=== PATIENT | male | born 1950 | race Caucasian/White ===

== ENCOUNTER 2017-05-20 12:23 | Emergency (ER) | payer OTHER ==
[2017-05-20 12:37] VITALS: BP 154/95; TEMP 97.9; BMI 25.1
--- NOTE | 2017-05-20 13:45 | PDOC ---
Attending Attestation - Resident Resident Name: Vinicius Fairbanksl - ED Attending Attestation I have performed the following: I have examined & evaluated the patient, The case was reviewed & discussed with the resident, I agree w/resident's findings & plan, Exceptions are as noted - HPI HPI: 67 yo M history CAD s/p stent, HL, presents with abrupt onset lower abdominal bloating, nausea since this morning. He states that he was out fishing all day yesterday with a friend, slept more heavily than he normally does as he was very tired. He states that this morning he started to have bloating in his lower abdomen, then noted pain to the L flank/L side/L hip. Pain does not change with position. Able to ambulate without difficulty. Symptoms are associated with nausea. No vomiting, no dysuria. - Physicial Exam PE: GENERAL: Awake, alert, and fully oriented, in no acute distress. Appears uncomfortable. HEAD: No signs of trauma EYES: PERRLA, EOMI, sclera anicteric, conjunctiva clear ENT: Auricles normal inspection, hearing grossly normal, nares patent, oropharynx clear without exudates. Moist mucosa NECK: Normal ROM, supple, no lymphadenopathy, JVD, or masses LUNGS: Breath sounds equal, clear to auscultation bilaterally. No wheezes, and no crackles HEART: Bradycardic with regular rhythm, normal S1 and S2, no murmurs, rubs or gallops ABDOMEN: Soft, nontender, normoactive bowel sounds. No guarding, no rebound. No masses. No CVAT. EXTREMITIES: Normal range of motion, no edema. No clubbing or cyanosis. No cords, erythema, or tenderness NEUROLOGICAL: Cranial nerves II through XII grossly intact. Normal speech, normal gait SKIN: Warm, Dry, normal turgor, no rashes or lesions noted. - Medical Decision Making Pt with history of CAD, prior stent, recently stopped his plavix (it has been 1 year since stent placement). Presents with lower abdominal discomfort/bloating, radiating to L side. Noted to have intermittent belching in ED. Will obtain CE, lipase, and basic labs. Will obtain CT r/o kidney stone.
[2017-05-20] MEDS ORDERED: ONDANSETRON 4 MG/2 ML VIAL IVPUSH ONE (14:10)
[2017-05-20] MEDS ORDERED: SODIUM CHLORIDE 1,000 ML IV STA (14:12)
--- NOTE | 2017-05-20 14:18 | PDOC ---
History of Present Illness - General Chief Complaint: Pain, Acute Stated Complaint: PAIN Time Seen by Provider: 05/20/17 13:31 History Source: Patient Exam Limitations: No Limitations - History of Present Illness Initial Comments: 05/20/17 14:15 67 y.o. M with pmh of CAD s/p stent, HLD, and BUBBA presenting with abdominal discomfort and left hip pain/flank pain that began at 8 am this morning. Patient states his discomfort started suddenly, nonradiating, 3/10, and intermittent. Patient tried gas-ex with minimal relief. Patient endorses chills and nausea. Patient denies fever, chest pain, sob, vomiting, diarrhea, dysuria, hematuria. Patient able to ambulate without any difficulty. Allergies: NKDA Past surgical history: Stent placement Social history: 1 drink per day PMD - Dr. Jamila Boyd Past History - Past Medical History Allergies/Adverse Reactions: Allergies Allergy/AdvReac Type Severity Reaction Status Date / Time No Known Allergies Allergy Verified 05/20/17 12:37 Home Medications: Ambulatory Orders Aspirin [ASA -] 81 mg PO DAILY 05/20/17 Atorvastatin Ca [Lipitor] 20 mg PO HS 05/20/17 Ciprofloxacin [Cipro -] 500 mg PO Q12H #10 tablet 05/20/17 Ondansetron [Zofran Odt -] 4 mg SL BID #14 od.tablet 05/20/17 Oxycodone HCl/Acetaminophen [Percocet 5-325 mg Tablet] 1 tab PO Q6H PRN #10 tablet MDD 4 05/20/17 Tamsulosin HCl [Flomax] 0.4 mg PO DAILY #7 cap.er.24h 05/20/17 Cardiac Disorders: Yes Other medical history: SLEEP APNEA, CPAP AT NIGHT - Surgical History Cardiac Surgery: Yes (1 CARDIAC STENT) - Suicide/Smoking/Psychosocial Hx Smoking History: Never smoked Hx Alcohol Use: Yes (DAILY) Drug/Substance Use Hx: No Substance Use Type: Alcohol Review of Systems - Review of Systems Able to Perform ROS?: Yes Comments:: 05/20/17 14:19 GENERAL/CONSTITUTIONAL: No fever, +chills. No weakness. +Discomfort HEAD, EYES, EARS, NOSE AND THROAT: No change in vision. No ear pain or discharge. No sore throat. CARDIOVASCULAR: No chest pain or shortness of breath RESPIRATORY: No cough, wheezing, or hemoptysis. GASTROINTESTINAL: +nausea, No vomiting, diarrhea or constipation. +abdominal bloating, +belching GENITOURINARY: No dysuria, frequency, or change in urination. MUSCULOSKELETAL: No joint or muscle swelling or pain. No neck or back pain. SKIN: No rash NEUROLOGIC: No headache, vertigo, loss of consciousness, or change in strength/ sensation. ENDOCRINE: No increased thirst. No abnormal weight change HEMATOLOGIC/LYMPHATIC: No anemia, easy bleeding, or history of blood clots. ALLERGIC/IMMUNOLOGIC: No hives or skin allergy. *Physical Exam - Vital Signs Last Vital Signs Temp Pulse Resp BP Pulse Ox 97.9 F 45 L 16 154/95 100 05/20/17 12:32 05/20/17 12:32 05/20/17 12:32 05/20/17 12:32 05/20/17 12:32 - Physical Exam Comments: 05/20/17 14:19 GENERAL: Awake, alert, and fully oriented, in no acute distress. +uncomfotable in chair--constantly moving around HEAD: No signs of trauma, normocephalic, atraumatic EYES: PERRLA, EOMI, sclera anicteric, conjunctiva clear ENT: Auricles normal inspection, hearing grossly normal, nares patent, oropharynx clear without exudates. Moist mucosa NECK: Normal ROM, supple, no lymphadenopathy, JVD, or masses LUNGS: No distress, speaks full sentences, clear to auscultation bilaterally HEART: Regular rate and rhythm, normal S1 and S2, no murmurs, rubs or gallops, peripheral pulses normal and equal bilaterally. ABDOMEN: Soft, nontender, normoactive bowel sounds. No guarding, no rebound. No masses +no cva tenderness EXTREMITIES: Normal inspection, Normal range of motion, no edema. No clubbing or cyanosis. NEUROLOGICAL: Cranial nerves II through XII grossly intact. Normal speech, normal gait, no focal sensorimotor deficits SKIN: Warm, Dry, normal turgor, no rashes or lesions noted. ED Treatment Course - LABORATORY CBC & Chemistry Diagram: 05/20/17 15:51 05/20/17 15:51 - RADIOLOGY Radiology Studies Ordered: Category Date Time Status SPIRAL- RENAL-STONE CT [CT] Stat CT Scan 05/20/17 14:12 Ordered Medical Decision Making - Medical Decision Making 05/20/17 14:12 67 y.o. M with pmh of CAD s/p stent, HLD, and BUBBA presenting with abdominal bloating and left hip discomfort. Given hx and physical exam, concern for nephrolithaisis vs pancreatitis vs ACS Plan: CBC, CMP, Lipase, EKG, UA, Spiral CT Sx control. 05/20/17 14:22 CBC- 91% neutrophils UA- Increased RBC, 2+ Blood, [address]- 4-5 mm stone with mild-moderate hydronephrosis and perirenal stranding. Call placed to Dr. Villaseñor (urologist). 05/20/17 17:39 Patient stable for d/c with urology f/u tomorrow. *DC/Admit/Observation/Transfer Diagnosis at time of Disposition: Nephrolithiasis - Discharge Dispostion Disposition: HOME Condition at time of disposition: Stable - Prescriptions Prescriptions: Ciprofloxacin [Cipro -] 500 mg PO Q12H #10 tablet Tamsulosin HCl [Flomax] 0.4 mg PO DAILY #7 cap.er.24h Oxycodone HCl/Acetaminophen [Percocet 5-325 mg Tablet] 1 tab PO Q6H PRN #10 tablet MDD 4 PRN Reason: Severe Pain Ondansetron [Zofran Odt -] 4 mg SL BID #14 od.tablet - Referrals Referrals: Jamila Boyd MD [Primary Care Provider] - - Patient Instructions Printed Discharge Instructions: DI for Kidney Stones Additional Instructions: Take medications as prescribed (zofran, flomax, ciprofloxacin, percocet) Follow up with your urologist tomorrow. If you have chest pain, shortness of breath, worsening or new symptoms please come back to the hospital immediately
[2017-05-20] MEDS ORDERED: ONDANSETRON 4 MG/2 ML VIAL ONE (15:33)
[2017-05-20 16:04] LABS: BASOPHIL 0.1 % (0-2.0); MCH 31.7 pg (25.7-33.7); MCHC 33.7 g/dl (32.0-35.9); MEAN CELL VOLUME 94.2 fl (80-96); MEAN PLT VOLUME 8.8 fl (7.5-11.1); NEUTROPHILS 91.4 % (42.8-82.8); PLATELET COUNT 148 K/MM3 (134-434); RDW 13.4 % (11.9-15.9); WHITE BLOOD COUNT 8.7 K/mm3 (4.0-10.0)
[2017-05-20 16:48] LABS: URINE APPEARANCE CLOUDY; URINE BILIRUBIN NEGATIVE (NEGATIVE); URINE BLOOD 2+ (NEGATIVE); URINE COLOR DKYELLOW; URINE GLUCOSE (UA) NEGATIVE (NEGATIVE); URINE KETONE TRACE (NEGATIVE); URINE NITRITE NEGATIVE (NEGATIVE); URINE UROBILINOGEN NEGATIVE mg/dL (0.2-1.0)
[2017-05-20 16:57] LABS: URINE PROTEIN 2+ (NEGATIVE)
[2017-05-20 16:59] LABS: URINE MUCUS RARE; URINE RBC 1255 /hpf (0-3); URINE WBC 29 /hpf (3-5)
[2017-05-20 17:12] LABS: CREATININE 1.3 mg/dL (0.7-1.3); GLUCOSE,RANDOM 129 mg/dL (74-106)
[2017-05-20 17:13] LABS: ALBUMIN 3.9 g/dl (3.4-5.0); ANION GAP 7 (8-16); BILIRUBIN,TOTAL 0.8 mg/dL (0.2-1.0); CALCIUM 8.9 mg/dL (8.5-10.1); CO2 28 mmol/L (21-32); SGOT/AST 24 U/L (15-37); SGPT/ALT 27 U/L (12-78); TOT PROT 7.3 g/dl (6.4-8.2)
[2017-05-20 17:16] LABS: ALK PHOS 64 U/L (45-117); CPK 149 IU/L (39-308); TROPONIN I < 0.02 ng/ml (0.00-0.05)
[2017-05-20] MEDS ORDERED: KETOROLAC TROMETHAMINE 30 MG/1 ML VIAL IVPUSH ONE (17:17)
--- NOTE | 2017-05-20 17:24 | PDOC ---
*Physical Exam - Vital Signs Last Vital Signs Temp Pulse Resp BP Pulse Ox 97.9 F 45 L 16 154/95 100 05/20/17 12:32 05/20/17 12:32 05/20/17 12:32 05/20/17 12:32 05/20/17 12:32 ED Treatment Course - LABORATORY CBC & Chemistry Diagram: 05/20/17 15:51 05/20/17 15:51 - ADDITIONAL ORDERS Additional order review: Laboratory Results 05/20/17 05/20/17 05/20/17 16:30 15:51 15:51 Sodium 140 Potassium 4.2 Chloride 105 Carbon Dioxide 28 Anion Gap 7 L BUN 17 Creatinine 1.3 Creat Clearance w eGFR 55.40 Random Glucose 129 H Calcium 8.9 Total Bilirubin 0.8 AST 24 ALT 27 Alkaline Phosphatase 64 Creatine Kinase 149 Troponin I < 0.02 Total Protein 7.3 Albumin 3.9 Lipase 126 Urine Color Dkyellow Urine Appearance Cloudy Urine pH 8.0 Urine Protein 2+ H Urine Glucose (UA) Negative Urine Ketones Trace H Urine Blood 2+ H Urine Nitrite Negative Urine Bilirubin Negative Urine Urobilinogen Negative Urine RBC 1255 Urine WBC 29 Urine Mucus Rare 05/20/17 15:51 RBC 4.79 MCV 94.2 MCHC 33.7 RDW 13.4 MPV 8.8 Neutrophils % 91.4 H Lymphocytes % 4.4 L Monocytes % 4.1 Eosinophils % 0.0 Basophils % 0.1 - Medications Given in the ED: ED Medications Discontinued Medications Generic Name Dose Route Start Last Admin Trade Name Freq PRN Reason Stop Dose Admin Sodium Chloride 1,000 mls @ 1,000 mls/hr 05/20/17 14:12 05/20/17 15:56 Normal Saline - IV 05/20/17 15:11 1,000 mls/hr ASDIR STA Administration Ondansetron HCl 4 mg 05/20/17 14:10 05/20/17 15:56 Zofran Injection IVPUSH 05/20/17 14:11 4 mg ONCE ONE Administration Medical Decision Making - Medical Decision Making 05/20/17 17:22 ct scan revelaled 5mm stone in ureter with moderate hydro and stranding due to acute obstruction pt's urlogist is Dr Robert Villaseñor [phone] was contacted 05/21/17 02:[address] Villaseñor and he will see pt in his office within 24 hours . RX for flomax,cipro and percocet. discharged home *DC/Admit/Observation/Transfer Diagnosis at time of Disposition: Nephrolithiasis - Discharge Dispostion Disposition: HOME Condition at time of disposition: Stable - Prescriptions Prescriptions: Ciprofloxacin [Cipro -] 500 mg PO Q12H #10 tablet Tamsulosin HCl [Flomax] 0.4 mg PO DAILY #7 cap.er.24h Oxycodone HCl/Acetaminophen [Percocet 5-325 mg Tablet] 1 tab PO Q6H PRN #10 tablet MDD 4 PRN Reason: Severe Pain Ondansetron [Zofran Odt -] 4 mg SL BID #14 od.tablet - Referrals Referrals: Jamila Boyd MD [Primary Care Provider] - - Patient Instructions Printed Discharge Instructions: DI for Kidney Stones Additional Instructions: Take medications as prescribed (zofran, flomax, ciprofloxacin, percocet) Follow up with your urologist tomorrow. If you have chest pain, shortness of breath, worsening or new symptoms please come back to the hospital immediately - Post Discharge Activity
[2017-05-20] MEDS ORDERED: KETOROLAC TROMETHAMINE 30 MG/1 ML VIAL ONE (17:29)
[2017-05-20 18:26] LABS: PLATELET COMMENT2 NO CLOTTING DETECTED; PLATELET ESTIMATE ADEQUATE (NORMAL)
[2017-05-20 19:01] VITALS: PULSE 49
[2017-05-20 21:03] LABS: URINE LEUK ESTERASE Negative (NEGATIVE)
--- NOTE | 2017-05-21 07:06 | EKG ---
Test Reason : Blood Pressure : / mmHG Vent. Rate : 039 BPM Atrial Rate : 039 BPM P-R Int : 136 ms QRS Dur : 078 ms QT Int : 468 ms P-R-T Axes : 001 022 054 degrees QTc Int : 376 ms MARKED SINUS BRADYCARDIA ABNORMAL ECG NO PREVIOUS ECGS AVAILABLE Confirmed by JESSICA KRUSE MD ([id number]) on 05/21/2017 7:05:54 AM Referred By: Confirmed By:JESSICA KRUSE MD
== END 2017-05-20 18:25 | disposition home or self-care (01) ==
LOC: JER 12:23
PROC: 3E0333Z Introduction of Anti-inflammatory into Peripheral Vein, Percutaneous Approach (ICD-10-PCS; principal; 2017-05-20)
PROC: 3E033GC Introduction of Other Therapeutic Substance into Peripheral Vein, Percutaneous Approach (ICD-10-PCS; 2017-05-20)
DX: N13.2 Hydronephrosis with renal and ureteral calculous obstruction (principal); I25.10 Atherosclerotic heart disease of native coronary artery without angina pectoris; Z95.5 Presence of coronary angioplasty implant and graft; E78.00 Pure hypercholesterolemia, unspecified; G47.33 Obstructive sleep apnea (adult) (pediatric)
CPT/HCPCS: 36415; 74176; 80053; 81003; 81015; 82550; 83690; 84484; 85025; 93005; 93010; 99282-25